=== PATIENT | female | born 1975 | race Hispanic/Latino ===

== ENCOUNTER 2016-11-23 03:26 | Emergency (ER) | payer OTHER ==
[~2016-11-23 03:26] MED LIST: IBUPROFEN800 M1 PO
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
[2016-11-23 04:10] LABS: ABSOLUTE BASOPHIL COUNT 0 /CUMM (0.0-0.2); ABSOLUTE EOSINOPHIL COUNT 0 /CUMM (0.0-0.7); ABSOLUTE GRANULOCYTE CT 12.1 /CUMM (1.4-6.5); ABSOLUTE LYMPH COUNT 2.2 /CUMM (1.2-3.4); ABSOLUTE MONOCYTE COUNT 0.1 /CUMM (0.10-0.60); BASOPHIL % 0 % (0.0-2.0); EOSINOPHIL % 0.1 % (0-5); HEMATOCRIT 37.7 % (37-47); MEAN CORPUSCULAR HGB 29.5 PG (27.0-31.0); MEAN CORPUSCULAR HGB CONC 33.7 G/DL (33.0-37.0); MEAN CORPUSCULAR VOLUME 87.5 FL (81.0-99.0); MEAN PLATELET VOLUME 8.7 FL (7.4-10.4); PLATELET COUNT 313 /CUMM (130-400); RBC DISTRIBUTION WIDTH 13.7 % (11.5-14.5); WHITE BLOOD CELL COUNT 14.5 /CUMM (4.8-10.8)
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
[2016-11-23 10:30] VITALS: BP 104/56
== END 2016-11-23 11:49 ==
LOC: ERH 03:26
PROVIDERS: Emergency Medicine
DX: T71.162A Asphyxiation due to hanging, intentional self-harm, initial encounter (principal); F10.129 Alcohol abuse with intoxication, unspecified; F10.10 Alcohol abuse, uncomplicated
CPT/HCPCS: 80307; G0463; G0480

== ENCOUNTER 2017-05-05 09:47 | Emergency (ER) | payer OTHER ==
[~2017-05-05] VITALS: Ht 170.2 cm; Wt 65.8 kg
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
[2017-05-05] MEDS ORDERED: BENADRYL ALLERG25 M2 PO (11:04)
[2017-05-05] MEDS ORDERED: VIBRAMYCIN100 MG PO (11:04)
[2017-05-05] MEDS ORDERED: BACTROBAN15 GM TOP (11:04)
[2017-05-05 11:25] VITALS: BP 115/74
== END 2017-05-05 11:25 ==
LOC: ERH 09:47
DX: L02.31 Cutaneous abscess of buttock (principal)